=== PATIENT | female | born 1970 | race Caucasian/White ===

== ENCOUNTER → 2016-08-27 | Day surgery (SDC) | payer OTHER ==
[~2016-08-27] MED LIST: ALPRAZolam 0.25 MG TAB ONE; BACITRACIN OINT 1 EACH PACKET TOPICAL ONE; LIDOCAINE 1% INJ 10MG/ML (20 ML MDV) ONE; LIDOCAINE 1%-EPI 1:100,000 20 ML VIAL ONE; SODIUM BICARB 4% 5 ML VIAL (0.48 MEQ/ML) ONE
--- NOTE | 2016-08-27 09:42 | MM ---
EXAMINATION TYPE: MG stereo VAD BX RT DATE OF EXAM: 08/27/2016 9:21 AM COMPARISON: Outside mammograms August 14, 2016 and August 09, 2016. CLINICAL HISTORY: Abnormal outside mammogram, suspicious group of calcifications TECHNIQUE: Stereotactic guided core biopsy of right breast with clip placement and follow-up two-view mammogram. FINDINGS: The procedure of stereotactic guided core biopsy was explained to the patient. Benefits, alternatives, and risks were discussed. An informed consent was then obtained. The [facility] pathway for biopsy was chosen. Shortness pathway was cranial approach. I performed the localization and remainder of procedure. Overlying skin is cleansed with sterile alcohol. Lidocaine with bicarbonate is used as anesthetic into the skin and subcutaneous tissue. Lidocaine with epinephrine is used as anesthetic into the deeper tissue. A vacuum assisted biopsy gun was used to obtain multiple core samples. The patient tolerated the procedure well without any immediate complication. The patient was kept in the radiology department for short stay after the procedure and then discharged home in stable condition. Targeted calcifications are identified in specimen mammogram. Post biopsy mammogram shows the clip to appear in satisfactory position relative to the targeted area of concern on the preprocedure images. No suspicious residual calcifications are identified. IMPRESSION: SUCCESSFUL, UNCOMPLICATED STEREOTACTIC GUIDED CORE BIOPSY OF AREA OF CONCERN IN THE RIGHT BREAST, FULL PATHOLOGY RESULTS TO FOLLOW. Intermediate index of suspicion noted at time of procedure. Pathology Results: Benign BREAST, RIGHT, STEREOTACTIC CORE BIOPSY: FIBROCYSTIC CHANGE (STROMAL FIBROSIS, CYST FORMATION, APOCRINE METAPLASIA, ADENOSIS AND DUCT HYPERPLASIA). 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 ONLY RARE CALCIUM OXYLATE CRYSTALS ARE SEEN IN THE INITIAL SECTIONS. DEEPER SECTIONS ARE BEING PERFORMED AND THE RESULTS WILL BE ISSUED IN AN ADDENDUM REPORT. ADDENDUM REPORT BREAST, RIGHT, STEREOTACTIC CORE BIOPSY: PENDING CONSULTATION, SEE ADDENDUM/ FINAL DIAGNOSIS. ADDENDUM REPORT BREAST, RIGHT, CORE BIOPSIES ([id number]; A1: 08/27/16): FIBROADENOMA WITH CYSTS AND MICROCALCIFICATIONS. PLEASE SEE LETTER. Recommendation Follow up mammogram of the right breast in 6 months. CARMENZA
== END ==
LOC: RADMAMWWP 06:56
PROVIDERS: ATTEND Surgery
DX: N60.31 Fibrosclerosis of right breast (principal); N60.81 Other benign mammary dysplasias of right breast; R92.8 Other abnormal and inconclusive findings on diagnostic imaging of breast; N60.21 Fibroadenosis of right breast; N60.91 Unspecified benign mammary dysplasia of right breast; D24.1 Benign neoplasm of right breast; N60.01 Solitary cyst of right breast; N64.89 Other specified disorders of breast
CPT/HCPCS: 88305; 19081; A4648; J2001

== ENCOUNTER → 2017-03-13 | Outpatient (CLI) | payer OTHER ==
--- NOTE | 2017-03-13 10:03 | MM ---
Reason for exam: screening (asymptomatic). Last mammogram was performed 7 months ago. History: Patient is nulliparous. Benign MG stereo VAD BX RT of the right breast, August 27, 2016. Physical Findings: A clinical breast exam by your physician is recommended on an annual basis and results should be correlated with mammographic findings. MG 3D Diag Mammo W/Cad RT CC and MLO view(s) were taken of the right breast. Prior study comparison: August 14, 2016, mammogram, performed at [facility]. August 09, 2016, mammogram, performed at [facility]. April 20, 2010, mammogram, performed at [facility]. The breast tissue is heterogeneously dense. This may lower the sensitivity of mammography. Microclip anterior upper outer quadrant from recent stereo biopsy. Large group of course calcifications posterior upper outer quadrant are unchanged from July 2016 but not seen prior to that. A degenerating fibroadenoma is suspected. Continued short interval follow up recommended. These results were verbally communicated with the patient and result sheet given to the patient on 03/13/17. ASSESSMENT: Probably benign, BI-RAD 3 RECOMMENDATION: Follow-up diagnostic mammogram of both breasts in 6 months. Back on schedule for August 2017.
== END | disposition home or self-care (01) ==
LOC: RADMAMWWP 08:15
PROVIDERS: ATTEND Surgery
DX: R92.8 Other abnormal and inconclusive findings on diagnostic imaging of breast (principal)
CPT/HCPCS: G0206; G0279

== ENCOUNTER → 2017-08-18 | Outpatient (CLI) | payer OTHER ==
--- NOTE | 2017-08-19 11:30 | MM ---
Reason for exam: screening (asymptomatic). Last mammogram was performed 5 months ago. History: Patient is nulliparous. Benign MG stereo VAD BX RT of the right breast, August 27, 2016. Physical Findings: A clinical breast exam by your physician is recommended on an annual basis and results should be correlated with mammographic findings. MG Screening Mammo w CAD Bilateral CC and MLO view(s) were taken. Prior study comparison: March 13, 2017, right breast MG 3d diag mammo w/cad RT. August 14, 2016, mammogram, performed at [facility]. The breast tissue is heterogeneously dense. This may lower the sensitivity of mammography. No significant changes when compared with prior studies. ASSESSMENT: Benign, BI-RAD 2 RECOMMENDATION: Routine screening mammogram of both breasts in 1 year.
== END | disposition home or self-care (01) ==
LOC: RADMAMWWP 06:54
PROVIDERS: ATTEND Surgery
DX: Z12.31 Encounter for screening mammogram for malignant neoplasm of breast (principal)
CPT/HCPCS: 77067

== ENCOUNTER → 2018-10-29 | Outpatient (CLI) | payer OTHER ==
--- NOTE | 2018-11-03 13:27 | MM ---
Reason for exam: screening (asymptomatic). Last mammogram was performed 1 year and 2 months ago. History: Patient is nulliparous. Benign MG stereo VAD BX RT of the right breast, August 27, 2016. Physical Findings: A clinical breast exam by your physician is recommended on an annual basis and results should be correlated with mammographic findings. MG Screening Mammo w CAD Bilateral CC and MLO view(s) were taken. Prior study comparison: August 18, 2017, bilateral MG screening mammo w CAD. March 13, 2017, right breast MG 3d diag mammo w/cad RT. The breast tissue is heterogeneously dense. This may lower the sensitivity of mammography. There is a left upper outer quadrant middle depth 6 x 8mm mass 4-6cm from nipple. Benign appearing dystrophic calcifictions in the right breast. No suspicious abnormality in the right breast. Right biopsy marker noted. ASSESSMENT: Incomplete: need additional imaging evaluation, BI-RAD 0 RECOMMENDATION: Special view mammogram of the left breast. If lesion persists on supplemental views, image directed ultrasound is recommended. [facility] will attempt to contact patient to return for supplemental views and ultrasound if indicated.
== END | disposition home or self-care (01) ==
LOC: RADMAMWWP 07:26
PROVIDERS: ATTEND Family Medicine
DX: Z12.31 Encounter for screening mammogram for malignant neoplasm of breast (principal)
CPT/HCPCS: 77067

== ENCOUNTER → 2018-11-13 | Outpatient (CLI) | payer OTHER ==
--- NOTE | 2018-11-13 11:04 | MM ---
Reason for exam: additional evaluation requested from abnormal screening. Last mammogram was performed less than 1 month ago. History: Patient is nulliparous. Benign MG stereo VAD BX RT of the right breast, August 27, 2016. Physical Findings: Nurse did not find any significant physical abnormalities on exam. MG Work Up Mamm w CAD LT Spot compression CC, spot compression MLO, and ML view(s) were taken of the left breast. Prior study comparison: October 29, 2018, bilateral MG screening mammo w CAD. August 18, 2017, bilateral MG screening mammo w CAD. No definite lesion, few vague calcifications in dense tissue. These results were verbally communicated with the patient and result sheet given to the patient on 11/13/18. ASSESSMENT: Incomplete: need additional imaging evaluation, BI-RAD 0 RECOMMENDATION: Ultrasound of the left breast. CARMENZA
--- NOTE | 2018-11-13 11:07 | USB ---
Reason for exam: additional evaluation requested from abnormal screening. History: Patient is nulliparous. Benign MG stereo VAD BX RT of the right breast, August 27, 2016. US Breast Workup Limited LT Left limited breast ultrasound including focal area of concern, retroareolar and axilla demonstrates a 1.1 x 0.7 x 0.9cm oval, lobular, hypoechoic debris filled cyst versus solid lesion at 1 o'clock for which a biopsy is recommended, a 0.8 x 0.4 x 0.8cm oval, mixed lesion at 2 o'clock and a 0.9 x 0.4 x 0.8cm oval, hypoechoic lesion at 3 o'clock. These results were verbally communicated with the patient and result sheet given to the patient on 11/13/18. ASSESSMENT: Suspicious, BI-RAD 4 RECOMMENDATION: Ultrasound core biopsy of the left breast. (+/- FNA) Called Dr. Almendarez with mammographic findings and has scheduled an appointment for the patient for 11/13/18 at 11:[address] Farris. Biopsy scheduled for 11/27/18 at 11:30. PRELIMINARY REPORT CALLED AND FAXED TO DR. FARRIS ON 11/13/18.
[2018-11-13 11:41] VITALS: BP 147/81; PULSE 82; RESP 16; TEMP 98.1
== END ==
LOC: RADMAMWWP 08:50
PROVIDERS: ATTEND Family Medicine
DX: R92.8 Other abnormal and inconclusive findings on diagnostic imaging of breast (principal)
CPT/HCPCS: 77065

== ENCOUNTER → 2018-11-13 | Outpatient (CLI) | payer OTHER ==
--- NOTE | 2018-11-13 12:18 | P.GSHP ---
History of Present Illness H&P Date: 11/13/18 Chief Complaint: Radiographic abnormality left breast Azar is a 48-year-old white female who is status post bilateral mammogram after which additional views of the left breast were recommended. Additional views were obtained and [id number]. These revealed a few very calcifications and dense tissue. The patient was recommended to undergo an ultrasound of the left breast. On the ultrasound she was noted to have a 1.1 cm hypoechoic lesion at 1:00 for which biopsy was recommended. She was also noted to have is 0.8 cm lesion at 2:00 and a 0.9 cm lesion at 3:00. The patient herself states she did not feel anything of concern in her breasts. She has had a right breast biopsy in the past which was benign. The patient has no history of any trauma or infection in the breast. She has no history of any nipple discharge or skin changes. Family history: Negative Hormonal history: Menarche: 14 G0 Periods:Regular, last menstrual period this month control pills: Negative Hormones: Negative Past surgical history: Negative Medical history: Negative Social history: Smoke: Negative Alcohol: Negative Drugs: Negative - Constitutional Constitutional: Denies chills, Denies fever - EENT Eyes: denies blurred vision, denies pain - Breasts Breasts: bilateral: as per HPI - Cardiovascular Cardiovascular: Denies chest pain, Denies shortness of breath - Respiratory Respiratory: Denies cough, Denies 7 - Gastrointestinal Gastrointestinal: Denies abdominal pain, Denies diarrhea, Denies nausea, Denies vomiting - Genitourinary (Female) Genitourinary: Denies dysuria, Denies hematuria - Menstruation Menstruation: Reports period normal - Musculoskeletal Musculoskeletal: Denies myalgias - Psychiatric Psychiatric: Denies anxiety, Denies depression - Hematologic/Lymphatic Comment: none - Allergic/Immunologic Allergic/Immunologic: Reports seasonal allergies Medications and Allergies Home Medications Medication Instructions Recorded Confirmed Type Multivitamin [Multivitamins Adult 1 each PO 11/13/18 History Gummies] Potassium 99 mg PO 11/13/18 History Allergies Allergy/AdvReac Type Severity Reaction Status Date / Time No Known Allergies Allergy Unverified 11/13/18 11:35 Surgical - Exam - General well developed, well nourished, no distress - Eyes normal ocular movement - ENT normal pinna, no hearing loss - Neck no masses, trachea midline - Respiratory normal expansion, normal respiratory effort, clear to auscultation - Cardiovascular Rhythm: regular Heart Sounds: normal: S1, S2 - Abdomen Abdomen: soft, non tender, no guarding, no rigid, no rebound - Integumentary normal turgor - Neurologic no disoriented, no combative - Musculoskeletal normal gait, normal posture - Psychiatric oriented to time, oriented to person, oriented to place, speech is normal, memory intact Breast examination: Right breast: Dense breast tissue, fibrocystic changes, no dominant masses or nodules of concern Right axilla: No adenopathy of concern Left breast: Multiple positional exam fibrocystic changes no discrete dominant mass or nodule of concern Left axilla: No adenopathy of concern Results Mammogram and ultrasound results reviewed Assessment and Plan Assessment: Impression: 1. Normal mammogram left breast 2. Abnormal ultrasound left breast 3. Dense breast tissue 4. Fibrocystic breast changes 5. No family history of breast cancer 6. Most likely fibrocystic change Plan: 1. Ultrasound-guided aspiration/biopsy lesion noted on ultrasound left breast at 1:00 2. Follow-up after ultrasound-guided aspiration/biopsy CC: Dr. Almendarez
== END ==
LOC: WWCWWP 12:05
PROVIDERS: ATTEND Surgery
DX: Z53.9 Procedure and treatment not carried out, unspecified reason (principal)

== ENCOUNTER → 2018-11-27 | Day surgery (SDC) | payer OTHER ==
[2018-11-27 10:46] VITALS: RESP 16; BMI 69.2
[2018-11-27 12:50] VITALS: BP 126/88; PULSE 78; TEMP 98.1
--- NOTE | 2018-11-27 13:34 | USB ---
EXAMINATION TYPE: US biopsy breast add'l VAD LT, US biopsy breast VAD LT, MG diagnostic mammo LT wo CAD DATE OF EXAM: 11/27/2018 CLINICAL HISTORY: R92.8 ABNORMAL MAMMOGRAM. TECHNIQUE: Ultrasound guided core biopsy of left breast. COMPARISON: Left breast ultrasound dated 11/13/2018 and mammogram dated 11/13/2018 FINDINGS: Review of the images of 11/13/2018 revealed the hypoechoic solid mass at the 1:00 position measuring up to 1.1 cm for which biopsy was recommended as well as a solid 0.9 cm mass at the 3:00 position with an internal calcification. Biopsy of this mass was also performed. Recommendation was discussed with the patient prior to the procedure and decision was made to biopsy 2 sites. The procedure of ultrasound guided core biopsy was explained to the patient. Benefits, alternatives, and risks were discussed. An informed consent was then obtained. Preprocedural timeout was performed. Site A: The patient was placed in supine positioning for imaging and for the procedure. The overlying skin was prepped and draped in usual sterile fashion. 10 cc of 1% lidocaine was used as anesthetic into the skin and subcutaneous tissue up the 0.9 cm mass at 3:00 position in the left breast. Under ultrasound guidance, a 12-gauge vacuum assisted biopsy gun device was used to obtain 5 core samples. Following this, a ribbon-shaped biopsy marker was left in the mass. Site B: The patient was placed in supine positioning for imaging and for the procedure. The overlying skin was prepped and draped in usual sterile fashion. 10 cc of 1% lidocaine was used as anesthetic into the skin and subcutaneous tissue up to the 1 cm solid mass at the 1:00 position in the left breast. Under ultrasound guidance, a 12-gauge vacuum assisted biopsy gun device was used to obtain 4 core samples. Following this, a wing shaped biopsy marker was left in the mass. Postprocedural mammogram demonstrates appropriate biopsy marker placement of both biopsy markers. The patient tolerated the procedure well without any immediate complication. The patient was kept in the radiology department for short stay after the procedure and then discharged home in stable condition. IMPRESSION: Successful, uncomplicated 2 site ultrasound guided core biopsy of a 1 cm mass at the 1:00 position in 0.9 cm mass at the 3:00 position both within the left breast, full pathology results to follow. Pathology Results: Benign A. LEFT BREAST, SITE A 3:00, ULTRASOUND GUIDED CORE BIOPSY: Fibroadenoma with sclerosis and calcifications. Background fibrocystic changes. B. LEFT BREAST, SITE B 1:00, ULTRASOUND GUIDED CORE BIOPSY: Fibroadenoma and background fibrocystic changes. Recommendation Follow up left breast ultrasound in 6 months. CARMENZA
== END ==
LOC: RADUSWWP 10:23
PROVIDERS: ATTEND Surgery
DX: D24.2 Benign neoplasm of left breast (principal); R92.1 Mammographic calcification found on diagnostic imaging of breast; R92.8 Other abnormal and inconclusive findings on diagnostic imaging of breast
CPT/HCPCS: 88305; 77065; 19083; 19084; A4648; J2001

== ENCOUNTER → 2018-12-10 | Outpatient (CLI) | payer OTHER ==
[2018-12-10 16:14] VITALS: BP 120/75; PULSE 105; RESP 16; TEMP 98.8; BMI 31.2
--- NOTE | 2018-12-10 16:26 | P.PN ---
Subjective Progress Note Date: 12/10/18 Principal diagnosis: status post core biopsy left breast Radha is a 48-year-old white female status post ultrasound-guided core biopsy of 2 areas of concern in the left breast performed and [id number]. Pathology of site which was at 3:00 reveal fibroadenomatous sclerosis and calcifications, site the 1:00 revealed fibroadenoma and background fibrocystic changes. Patient has no complaints following the biopsy. Objective - Vital Signs Vital signs: Vital Signs Temp 98.8 F 12/10/18 16:11 Pulse 105 H 12/10/18 16:11 Resp 16 12/10/18 16:11 BP 120/75 12/10/18 16:11 Pulse Ox 97 12/10/18 16:11 Intake & Output 12/09/18 12/10/18 12/10/18 18:59 06:59 18:59 Weight 82.554 kg - Constitutional General appearance: Present: average body habitus - EENT Eyes: Present: EOMI ENT: Present: hearing grossly normal - Neck Neck: Present: normal ROM - Respiratory Respiratory: bilateral: CTA - Cardiovascular Rhythm: regular Heart sounds: normal: S1, S2 - Integumentary Integumentary: Present: normal turgor - Musculoskeletal Musculoskeletal: Present: gait normal - Additional findings Additional findings: Both biopsy sites left breast clean and dry, no evidence of any infection Assessment and Plan Assessment: Impression: 1. Two site ultrasound core biopsy left breast consistent with fibroadenoma, benign 2. Dense breast tissue 3. Fibrocystic breast changes 4. No family history of breast cancer Plan: 1. Repeat ultrasound left breast in 6 months with physician exam at that time CC: Dr. Almendarez
== END | disposition home or self-care (01) ==
LOC: WWCWWP 16:01
PROVIDERS: ATTEND Surgery
DX: Z53.9 Procedure and treatment not carried out, unspecified reason (principal)

== ENCOUNTER → 2019-06-15 | Outpatient (CLI) | payer OTHER ==
--- NOTE | 2019-06-17 09:44 | USB ---
Reason for exam: follow-up at short interval from prior study. History: Patient is nulliparous. Benign US biopsy breast VAD LT of the left breast, November 27, 2018. Benign US biopsy breast add'l VAD LT of the left breast, November 27, 2018. Benign MG stereo VAD BX RT of the right breast, August 27, 2016. Physical Findings: Nurse did not find any significant physical abnormalities on exam. US Breast Limited LT Left limited breast ultrasound including focal area of concern, retroareolar and axilla demonstrates a 1.2 x 1.0 x 0.8cm solid, hypoechoic lesion at 1 o'clock, previously biopsied and a 0.7 x 0.6 x 0.4cm solid, hypoechoic lesion at 3 o'clock, previously biopsied. These results were verbally communicated with the patient and result sheet given to the patient on 06/15/19. ASSESSMENT: Benign, BI-RAD 2 RECOMMENDATION: Return to routine screening mammogram schedule for both breasts. Back on schedule.
== END | disposition home or self-care (01) ==
LOC: RADUSWWP 07:09
PROVIDERS: ATTEND Surgery
DX: R92.8 Other abnormal and inconclusive findings on diagnostic imaging of breast (principal)

== ENCOUNTER → 2020-02-16 | Outpatient (CLI) | payer OTHER ==
--- NOTE | 2020-02-17 10:46 | MM ---
Reason for exam: screening (asymptomatic). Last mammogram was performed 1 year and 3 months ago. History: Patient is nulliparous. Benign US biopsy breast VAD LT of the left breast, November 27, 2018. Benign US biopsy breast add'l VAD LT of the left breast, November 27, 2018. Benign MG stereo VAD BX RT of the right breast, August 27, 2016. Physical Findings: A clinical breast exam by your physician is recommended on an annual basis and results should be correlated with mammographic findings. MG 3D Screening Mammo W/Cad Bilateral CC and MLO view(s) were taken. Prior study comparison: November 27, 2018, left breast MG diagnostic mammo LT wo CAD. November 13, 2018, left breast MG work up mamm w CAD LT. The breast tissue is heterogeneously dense. This may lower the sensitivity of mammography. Stable benign calcifications. There is no discrete abnormality. No significant changes when compared with prior studies. ASSESSMENT: Benign, BI-RAD 2 RECOMMENDATION: Routine screening mammogram of both breasts in 1 year.
== END | disposition home or self-care (01) ==
LOC: RADMAMWWP 07:31
PROVIDERS: ATTEND Family Medicine
DX: Z12.31 Encounter for screening mammogram for malignant neoplasm of breast (principal)
CPT/HCPCS: 77063; 77067

== ENCOUNTER → 2021-03-28 | Outpatient (CLI) | payer OTHER ==
--- NOTE | 2021-03-29 14:25 | MM ---
Reason for exam: screening (asymptomatic). Last mammogram was performed 1 year and 1 month ago. History: Patient is nulliparous. Benign US biopsy breast VAD LT of the left breast, November 27, 2018. Benign US biopsy breast add'l VAD LT of the left breast, November 27, 2018. Benign MG stereo VAD BX RT of the right breast, August 27, 2016. Physical Findings: A clinical breast exam by your physician is recommended on an annual basis and results should be correlated with mammographic findings. MG 3D Screening Mammo W/Cad Bilateral CC and MLO view(s) were taken. Prior study comparison: February 16, 2020, bilateral MG 3d screening mammo w/cad. November 27, 2018, left breast MG diagnostic mammo LT wo CAD. The breast tissue is heterogeneously dense. This may lower the sensitivity of mammography. Finding: There are stable coarse heterogeneous, grouped/clustered calcifications in the upper outer quadrant, middle position of the right breast. Previous mammotome biopsy in the left breast. No significant changes in finding since February 16, 2020 and November 27, 2018. ASSESSMENT: Benign, BI-RAD 2 RECOMMENDATION: Routine screening mammogram of both breasts in 1 year.
== END | disposition home or self-care (01) ==
LOC: RADMAMWWP 07:52
PROVIDERS: ATTEND Family Medicine
DX: Z12.31 Encounter for screening mammogram for malignant neoplasm of breast (principal)
CPT/HCPCS: 77063; 77067

== ENCOUNTER → 2022-04-03 | Outpatient (CLI) | payer OTHER ==
--- NOTE | 2022-04-04 08:59 | MM ---
Reason for Exam: Screening (asymptomatic). Last screening mammogram was performed 12 month(s) ago. Patient History: Menarche at age 13. Patient has no children. 11/27/2018, Benign Core Biopsy on the left side. 11/27/2018, Benign Core Biopsy on the left side. 08/27/2016, Benign Core Biopsy on the right side. Last menstrual period: 03/16/2022 Risk Values: Josselyn 5 year model risk: 1.6%. NCI Lifetime model risk: 14.5%. Prior Study Comparison: 11/27/2018 Left Diagnostic Mammogram, [facility]. 02/16/2020 Bilateral Screening Mammogram, [facility]. 03/28/2021 Bilateral Screening Mammogram, [facility]. Tissue Density: The breast tissue is heterogeneously dense. This may lower the sensitivity of mammography. Findings: Analyzed By CAD. There are grouped benign-appearing dystrophic calcifications in the upper outer quadrant right breast redemonstrated. Surgical clip anterior to this is again seen. There are 2 biopsy clips in close proximity in the left breast with some adjacent small round benign-appearing calcifications redemonstrated. There is no suspicious new group of microcalcifications or new distortion in either breast. Overall Assessment: Benign, BI-RAD 2 Management: Screening Mammogram of both breasts in 1 year. A clinical breast exam by your physician is recommended on an annual basis and results should be correlated with mammographic findings. Electronically signed and approved by: Feliciano cOampo M.D.
== END | disposition home or self-care (01) ==
LOC: RADMAMWWP 07:44
PROVIDERS: ATTEND Family Medicine
DX: Z12.31 Encounter for screening mammogram for malignant neoplasm of breast (principal)
CPT/HCPCS: 77063; 77067

== ENCOUNTER → 2023-04-08 | Outpatient (CLI) | payer OTHER ==
--- NOTE | 2023-04-09 15:40 | MM ---
Reason for Exam: Screening (asymptomatic). Last screening mammogram was performed 12 month(s) ago. Patient History: Menarche at age 13. Patient has no children. 11/27/2018, Benign Core Biopsy on the left side. 11/27/2018, Benign Core Biopsy on the left side. 08/27/2016, Benign Core Biopsy on the right side. Risk Values: Josselyn 5 year model risk: 1.7%. NCI Lifetime model risk: 14.3%. Prior Study Comparison: 02/16/2020 Bilateral Screening Mammogram, [facility]. 03/28/2021 Bilateral Screening Mammogram, [facility]. 04/03/2022 Bilateral MG 3D screening mammo w/cad, [facility]. Tissue Density: The breast tissue is heterogeneously dense. This may lower the sensitivity of mammography. Findings: Analyzed By CAD. Pattern appears symmetrical. Numerous coarse calcifications are within the upper outer right breast present previously and stable. There is a clip in the upper outer anterior right breast. There is stable nodularity in the region. Biopsy markers are within the left breast. No significant interval changes are evident. No suspicious groups of microcalcifications, spiculated or lobular masses, architectural distortion or other secondary signs of malignancy are mammographically apparent. Overall Assessment: Benign, BI-RAD 2 Management: Screening Mammogram of both breasts in 1 year. A negative mammogram report should not preclude additional follow up of suspicious palpable abnormalities. Patient should continue monthly self breast exam. A clinical breast exam by your physician is recommended on an annual basis and results should be correlated with mammographic findings. Electronically signed and approved by: Dominic Lamar D.O. Radiologis
== END | disposition home or self-care (01) ==
LOC: EEVIPCON 07:40 → RADMAMWWP 07:44
PROVIDERS: ATTEND Family Medicine
DX: Z12.31 Encounter for screening mammogram for malignant neoplasm of breast (principal)
CPT/HCPCS: 77063; 77067

== ENCOUNTER → 2024-05-25 | Outpatient (CLI) | payer OTHER ==
--- NOTE | 2024-05-25 08:49 | MM ---
Reason for Exam: Screening (asymptomatic). Last mammogram was performed 1 year(s) and 2 month(s) ago. Patient History: Menarche at age 13. Patient has no children. 11/27/2018, Benign Core Biopsy on the left side. 11/27/2018, Benign Core Biopsy on the left side. 08/27/2016, Benign Core Biopsy on the right side. Risk Values: Josselyn 5 year model risk: 1.8%. NCI Lifetime model risk: 14.0%. Prior Study Comparison: 03/28/2021 Bilateral Screening Mammogram, [facility]. 04/03/2022 Bilateral MG 3D screening mammo w/cad, [facility]. 04/08/2023 Bilateral MG 3D screening mammo w/cad, [facility]. Tissue Density: The breasts are heterogeneously dense, which may obscure small masses. Findings: Analyzed By CAD. Right breast surgical clip and coarse calcifications. Left breast biopsy clips. Right breast: There is no suspicious group of microcalcifications or new suspicious mass. Left breast: There is no suspicious group of microcalcifications or new suspicious mass. Overall Assessment: Benign, BI-RAD 2 Management: Screening Mammogram of both breasts in [address] [facility] will attempt to contact patient to return for supplemental views and ultrasound if indicated. Patient should continue monthly self-breast exams. A clinical breast exam by your physician is recommended on an annual basis. This exam should not preclude additional follow-up of suspicious palpable abnormalities. Note on Josselyn scores and lifetime risk: 1. A Josselyn score greater than 3% is considered moderate risk. If this is the case, consider specialist referral to assess eligibility for a risk reducing agent. 2. If overall lifetime risk for the development of breast cancer is 20% or higher, the patient may qualify for future screening with alternating mammogram and breast MRI. [facility], , 05/25/2024 8:46 AM. Electronically signed and approved by: Dash Ballesteros DO
== END | disposition home or self-care (01) ==
LOC: RADMAMWWP 07:19
PROVIDERS: ATTEND Family Medicine
DX: Z12.31 Encounter for screening mammogram for malignant neoplasm of breast (principal); R92.333 Mammographic heterogeneous density, bilateral breasts; Z98.82 Breast implant status
CPT/HCPCS: 77063; 77067